=== PATIENT | female | born 1960 | race Caucasian/White ===

== ENCOUNTER → 2016-07-07 | Outpatient (CLI) | payer BC ==
--- NOTE | ~2016-07-07 | US6 ---
[facility] A Service of [facility] RADIOLOGY TEXT RESULTS PATIENT: RAMÓN CALIXTO LOCATION: SGUS : 60 UNIT #: [id number] AGE: [address]: Ameena River MD SEX: F ORDER DR: [id number] [place] [id number] O MR#: [id number] Acc #: [id number] NAME: RAMÓN CALIXTO : 1960 SEX: F STUDY DATE/TIME: 07/07/2016 10:48 UNIT: SGUS ROOM: STUDY DESCRIPTION: US Abdominal Limited Attending Physician: Ameena River M.D. Referring Physician: Ameena River M.D. Ordering Physician: Ameena River M.D. Primary Care Physician: Ameena River M.D. MEDICAL IMAGING REPORT This report is preliminary unless electronic signature is present. EXAM Right upper quadrant abdominal ultrasound 07/07/2016 INDICATIONS Elevated liver enzyme levels, for the past month. PROCEDURE Downs-scale and Doppler imaging right upper quadrant of the abdomen. COMPARISON CT from 08/07/2011 FINDINGS Visualized portions of pancreas unremarkable. Liver has diffusely increased echotexture and is not well evaluated on this study. The liver measures approximately 15.8 cm. Cholelithiasis. No gallbladder wall thickening or pericholecystic fluid. Right kidney measures 13 cm. No hydronephrosis. IMPRESSION 1. Uncomplicated cholelithiasis. 2. Hepatic steatosis. 1. Dictated by... Joaquín Beckwith M.D. THIS IS AN ELECTRONICALLY VERIFIED REPORT Joaquín Beckwith M.D. at 07/08/2016 10:02 AM Maylin TD: 07/07/2016 16:55 JOB #: [id number] [facility] A Service of [facility] RADIOLOGY TEXT RESULTS PATIENT: RAMÓN CALIXTO LOCATION: SG : 60 UNIT #: [id number] AGE: [address]: Ameena River MD SEX: F ORDER DR: MEDICAL IMAGING REPORT Page 1 of 1
== END | disposition home or self-care (01) ==
LOC: SGUS 09:00
DX: R74.8 Abnormal levels of other serum enzymes (principal); K80.20 Calculus of gallbladder without cholecystitis without obstruction; K76.0 Fatty (change of) liver, not elsewhere classified
CPT/HCPCS: 76705